=== PATIENT | male | born 1960 | race Caucasian/White ===

== ENCOUNTER 2023-11-26 09:53 | Outpatient (OUT) | payer MEDICAID, SELFPAY ==
[2023-11-26 10:30] LABS: Basophils Absolute Auto 0.1 10^3/uL (0.0-0.1); Basophils Percent Auto 0.8 % (0.2-2.0); Eosinophils Absolute Auto 0.2 10^3/uL (0.0-0.7); Hemoglobin 14.3 g/dL (14.0-18.0); Immature Granulocytes Abs Auto 0.02 10^3/uL (0.00-0.03); Immature Granulocytes Pct Auto 0.3 % (0.0-0.5); Lymphocytes Absolute Auto 2.2 10^3/uL (1.2-3.8); Lymphocytes Percent Auto 29.1 % (20.5-60.0); Mean Corpuscular Hemoglobin 33.2 pg (25.9-34.0); Mean Corpuscular Volume 97.4 fL (80.0-94.0); Mean Platelet Volume 8.5 fL (9.5-13.5); Monocytes Absolute Auto 0.8 10^3/uL (0.3-0.8); Monocytes Percent Auto 11.1 % (1.7-12.0); Neutrophils Absolute Auto 4.2 10^3/uL (1.4-6.5); Neutrophils Percent Auto 55.7 % (43.0-75.0); Platelet Count 264 10^3/uL (150-450); Red Blood Count 4.31 10^6/uL (4.70-6.10); Red Cell Distribution Width 13.9 % (11.0-15.0); White Blood Count 7.6 10^3/uL (4.0-11.0)
[2023-11-26 10:45] LABS: Alanine Aminotransferase 49 U/L (16-63); Albumin Globulin Ratio 0.8; Albumin Level 3.6 g/dL (3.4-5.0); Alkaline Phosphatase 132 U/L (46-116); Anion Gap 11.5; Aspartate Amino Transferase 49 U/L (15-37); BUN Creatinine Ratio 3.1; Bilirubin Total 0.5 mg/dL (0.2-1.0); Calcium 9.1 mg/dL (8.5-10.1); Carbon Dioxide 31.6 mmol/L (21.0-32.0); Chloride 96 mmol/L (98-107); Chol HDL Ratio 2.3; Cholesterol 171 mg/dL (<=200); Estimated GFR (African America >60 (>=60); Estimated GFR (Non-African Ame >60 (>=60); Globulin 4.4 g/dL; Glucose 93 mg/dL (74-106); HDL Cholesterol 73 mg/dL (40-60); Potassium 4.1 mmol/L (3.5-5.1); Sodium 135 mmol/L (136-145); Triglycerides 53 mg/dL (<=150); VLDL CHOLESTEROL 10.6 mg/dL
[2023-11-26 11:34] LABS: Prostate Specific Antigen Scrn 0.81 ng/mL (<=4.00)
== END 2023-11-26 09:54 | disposition home or self-care (01) ==
PROVIDERS: PCP Internal Medicine; Visit Provider Internal Medicine
DX: I48.91 Unspecified atrial fibrillation (principal); I10 Essential (primary) hypertension; E78.00 Pure hypercholesterolemia, unspecified; Z12.5 Encounter for screening for malignant neoplasm of prostate
CPT/HCPCS: 36415; 80053; 80061; 85025; G0103

== ENCOUNTER 2024-03-06 10:45 | Outpatient (OUT) | payer MEDICARE, MEDICAID, SELFPAY ==
--- NOTE | 2024-03-06 11:13 | XR_ITS ---
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 COMPARISON: None. FINDINGS: The lungs are hyperinflated with flattening of the left hemidiaphragm. There is no focal lung consolidation, pleural effusion or pneumothorax. Pulmonary vasculature is within normal limits.. There is aortic atherosclerosis and normal heart size. Small hiatal hernia. Degenerative changes of the spine. Fixation instrumentation in the cervical spine partially seen. XR/XR chest 2V IMPRESSION: 1. Pulmonary hyperinflation without acute pulmonary process. 2. Small hiatal hernia. Electronically authenticated by: KIKI MCKENNA Date: 03/08/2024 08:16
[2024-03-06 11:56] LABS: Alanine Aminotransferase 30 U/L (16-63); Albumin Level 3.6 g/dL (3.4-5.0); Alkaline Phosphatase 106 U/L (46-116); Aspartate Amino Transferase 37 U/L (15-37); Bilirubin Direct 0.2 mg/dL (0.0-0.2); Bilirubin Total 0.6 mg/dL (0.2-1.0); Globulin 3.5 g/dL; Thyroid Stimulating Hormone 0.976 uIU/mL (0.358-3.740); Total Protein 7.1 g/dL (6.4-8.2)
== END 2024-03-06 10:46 | disposition home or self-care (01) ==
LOC: LAB 10:48
PROVIDERS: PCP Internal Medicine; Visit Provider Internal Medicine Cardiovascular Disease
DX: Z79.899 Other long term (current) drug therapy (principal); K44.9 Diaphragmatic hernia without obstruction or gangrene
CPT/HCPCS: 36415; 71046; 80076; 84443

== ENCOUNTER 2024-04-12 09:51 | Outpatient (OUT) | payer MEDICARE, MEDICAID, SELFPAY ==
--- NOTE | 2024-04-12 09:57 | CA_ITS ---
Patient Name: STACI REGALADO MR#: [id number] : 1960 Exam Date: 04/12/2024 Ordering Doctor: ROBBIN WATKINS ECHOCARDIOGRAM REPORT PROCEDURE: CA ECHO DOPPLER COMPLETE INDICATIONS: Abnormal EKG COMPARISON: None. DESCRIPTION: COMPLETE ECHOCARDIOGRAM Real-time transthoracic echocardiography with 2D, M-mode, spectral and color flow Doppler performed. QUALITY: Technical quality was good. LEFT VENTRICLE: Normal chamber size. Normal left ventricular wall thickness. Global left ventricular systolic function is normal. LV EF: Visual estimation of left ventricular ejection fraction is 65%. DIASTOLIC: Not adequately assessed due to heart rhythm. ATRIAL SEPTUM: LEFT ATRIUM: Mild dilatation. RIGHT ATRIUM: Moderate dilatation. RIGHT VENTRICLE: Mild dilatation. Normal right ventricular systolic function. TRICUSPID VALVE: Normal mobility and thickness. No stenosis with mild to moderate regurgitation. No evidence of pulmonary hypertension. RVSP 33 mmHg MITRAL VALVE: Normal mobility and thickness. No evidence of mitral valve stenosis. There is no mitral annular calcification. Mild mitral regurgitation. AORTIC VALVE: Normal trileaflet appearance. Thickened aortic valve. Normal leaflet mobility. No evidence of aortic valve stenosis. No aortic regurgitation. AORTIC ROOT: Normal diameter and appearance. PULMONIC VALVE: Grossly normal. No stenosis. No regurgitation. PERICARDIUM: No evidence of pericardial effusion. IVC: Collapses with inspirations. Normal size. PLEURA: CONCLUSION: 1. Normal left ventricular size and systolic function. Estimated LVEF is 65%. 2. Mildly dilated right ventricle with normal systolic function. 3. Mild left atrial and moderate right atrial dilatation. 4. Mild mitral regurgitation. 5. Mild to moderate tricuspid regurgitation. 6. Normal right-sided pressures. 7. No pericardial effusion. Adult Echocardiography Procedure Report Left Ventricle LVEDD (3.7 - 5.6 cm): 4.38 cm LVESD (2.2 - 4.0 cm): 3.28 cm LVIVS thickness (0.6 - 1.2 cm): 0.95 cm LVPW thickness (0.5 - 1.0 cm): 0.89 cm e': 0.14 m/s E - e': 5.01 LVOT Max Gradient: 2.15 mm[Hg], 2.43 mm[Hg] LVOT Area (cm2): 0.76 m/s Peak Velocity (LVOT): 0.73 m/s, 0.78 m/s Mean Velocity (LVOT): 0.53 m/s LVOT Diameter 2.13 cm Left Ventricular Ejection Fraction: 65 % Left Atrium LA Volume Index (2D A2C): 38.93 ml/m2 Left Atrium Systolic Dimension: 4.11 cm Mitral Valve MV E to A Ratio: 8.65 Mitral Valve A-Wave Peak Velocity: 0.08 m/s Mitral Valve E-Wave Peak Velocity: 0.71 m/s Right Ventricle RV Internal Diastolic Dimension: 4.26 cm Aorta AO Root Diam: 3.44 cm Ascending Ao Diam: 3.28 cm Aortic Valve AoV Area ([place]): 2.72 cm2, 2.70 cm2, 2.74 cm2 AoV Area (VTI): 2.54 cm2, 2.54 cm2, 2.54 cm2 Peak Velocity(Antegrade Flow): 0.97 m/s, 1.01 m/s Peak Gradient(Antegrade Flow): 3.75 mm[Hg], 4.11 mm[Hg] Mean Velocity(Antegrade Flow): 0.73 m/s, 0.77 m/s Mean Gradient(Antegrade Flow): 2.42 mm[Hg], 2.67 mm[Hg] Velocity Time Integral: 18.72 cm, 20.08 cm Tricuspid Valve Peak Velocity (Regurgitant Flow): 2.54 m/s, 2.64 m/s, 2.75 m/s Pulmonic Valve Mean Gradient: 0.97 mm[Hg], 1.34 mm[Hg] Mean Velocity: 0.46 m/s, 0.55 m/s Peak Velocity: 0.70 m/s Peak Gradient: 1.76 mm[Hg], 2.16 mm[Hg] Right Atrium Right Atrium Systolic Pressure: 102.75 ml, 102.75 ml Dictated by: Philipp Marrero M.D. on 04/12/2024 at 13:27 Approved by: Philipp Marrero M.D. on 04/12/2024 at 13:31
--- OUTSIDE RECORDS SUMMARY | 2024-04-12 09:59 | XMS_ITS | CCD ---
Author Organization [facility] Inform ion Partnership [facility] Care Team Providers Care Transitions Manager Rn Name Role Phone Joesph Toribio Unavailable JOESPH, DR CORBETT Consulting Unavailable JOESPH, DR CORBETT Primary Care Unavailable JOESPH, DR CORBETT Admitting Unavailable BALL, DR CORBETT Attending Unavailable BALL, DR CORBETT Attending Unavailable BALL, DR CORBETT Consulting Unavailable BALL, DR CORBETT Primary Care Unavailable BALL, DR CORBETT Admitting Unavailable BALL, DR CORBETT Primary Care Unavailable ROBBIN WATKINS Attending Unavailable ROBBIN WATKINS Consulting Unavailable ROBBIN WATKINS Admitting Unavailable JOESPH, DR CORBETT Primary Care Unavailable TYLER ., DR MILENA Grimes Attending Unavailable DRAPER ., DR MILENA Grimes Consulting Unavailable TYLER ., DR MILENA Grimes Admitting Unavailable REINECK, DR JAZMYNE Araya Consulting Unavailmanas e ROBBIN WATKINS Consulting Unavailable NEFCY, MALIK Consulting Unavailable TERRELL, PERRY Consulting Unavailable ROBBIN WATKINS Attending Unavailable Allergies Allergy Classification Reported Allergen(s) Allergy Type Date of Onset Reaction(s) Facility (9 sources) gabapentin; Translations: [GABAPENTIN] Drug Allergy 12-31-2015 [facility] Repository (1 source) gabapentin Drug Allergy 07-04-2019 [facility] Repository Medications Current Medications Medication Drug Class(es) Dates Sig (Normalized) Sig (Original) [id number] 200 actuat albuterol 0.09 mg/actuat metered dose inhaler (20 sources) beta2-Adrenergic Agonist Start: 11-19-2023 take 2.5 mg by inhalation every six hours Albuterol Sulfate Active 2.5 MG INHALATION Every 6 hours November 19, 2023 12:00am Start: 11-19-2023 take 1 puff(s) by in halation every four hours Albuterol Sulfate Active 2 PUFF INHALATION Every 4 hours November 19, 2023 12:00am Start: 08-31-2022 Albuterol Sulf ate (2.5 MG/3ML) 0.083% 3ml Inhalation every 6 hrs as needed for cough and SOB Aug, Active take 1 puff(s) by in halation every four hours as needed Ventolin HFA 108 (90 Base) MCG/ACT 1 puff as needed Inhalation every 4 hrs Active Albuterol Sulfat e HFA 108 (90 Base) MCG/ACT 2 (TWO) PUFF EVERY 4 HOURS NEEDED FOR COUGH, SOB for 17 Active Albuterol Sulfat e HFA 108 (90 Base) MCG/ACT INHALE 2 PUFFS BY MOUTH THREE TIMES DAILY NEEDED Inhalation every 4 hrs Active 120 actuat albuterol 0.1 mg/actuat / ipratropium bromide 0.02 mg/actuat inhalation spray (9 sources) Anticholinergic, beta2-Adrenergic Agonist Start: 11-19-2023 take 20-100 ug by inhalation every six hours Ipratropium-Albuterol (Combivent Respimat) 20-100 mcg/actuation mist Active 1 PUFF INHALATION Every 6 hours November 19, 2023 12:00am take 20-100 ug by in halation four times daily Combivent Respimat 20-100 MCG/ACT INHALE 1 PUFF FOUR TIMES A DAY DIRECTED for 30 Active take 20-100 ug by in halation every six hours as needed Combivent Respimat 20-100 MCG/ACT 1 puff as needed Inhalation every 6 hrs Active amLODIPine 2.5 mg oral tablet (11 sources) Dihydropyridine Calcium Channel Stuart Start: 09-10-2023 End: 11-15-2023 take 1 tablet by mouth once daily Amlodipine Active 0 .ROUTE .COMPLEX November 15, 2023 12:41pm TAKE ONE TABLET BY MOUTH DAILY Start: 09-10-2023 End: 09-10-2023 take 2.5 mg by mouth once daily Amlodipine Discontinue d 2.5 MG PO Daily September 10, 2023 12:00am September 10, 2023 8:41am take 1 tablet by tico th once daily amLODIPine Besylate 2.5 mg TAKE 1 TABLET BY MOUTH DAILY for 28 Active amoxicillin 875 mg / clavulanate 125 mg oral tablet (7 sources) Penicillin-class Antibacterial Start: 09-04-2022 take 1 tablet by mouth every twelve hours Amoxicillin-Pot Clavulanate 875-125 MG 1 tablet Orally every 12 hrs for 7 days Aug, Active cyclobenzaprine hydrochloride 10 mg oral tablet (17 sources) Muscle Relaxant Start: 11-19-2023 take 10 mg by mouth twice daily Cyclobenzaprine Active 10 MG PO Twice daily November 19, 2023 12:00am Cyclobenzaprine HCl 10 mg TAKE 1 TABLET BY MOUTH TWICE A DAY FOR 30 DAYS for 30 Active take 1 tablet by tico th every twenty-four hours doxycycline hyclate 100 mg oral capsule (8 sources) Tetracycline-class Drug Start: 08-31-2022 take 1 capsule by mouth twice daily 12 hr guaiFENesin 600 mg extended release oral tablet (7 sources) take 1 tablet by mouth every twelve hours Mucinex 600 MG 1 tablet as needed Orally every 12 hrs Active lisinopril 20 mg oral tablet (9 sources) Angiotensin Converting Enzyme Inhibitor Start: 11-19-2023 take 20 mg by mouth once daily Lisinopril Active 20 MG PO Daily November 19, 2023 12:00am take 1 tablet by mouth once donavan y Lisinopril 20 mg TAKE ONE TABLET BY MOUTH DAILY for 28 Active 24 hr metoprolol succinate 100 mg extended release oral capsule (9 sources) beta-Adrenergic Stuart Start: 11-19-2023 take 100 mg by mouth once daily Metoprolol Succinate Active 100 MG PO Daily November 19, 2023 12:00am take 1 capsule by mouth once mey ly Metoprolol Succinate 100 MG 1 capsule Orally Once a day Active rivaroxaban 20 mg oral tablet (9 sources) Factor Xa Inhibitor Start: 11-19-2023 take 20 mg by mouth once daily Rivaroxaban Active 20 MG PO Daily November 19, 2023 12:00am take 1 tablet by tico th every twenty-four hours Xarelto 20 MG 1 tablet with food Orally Once a day Active Therapeutic M (8 sources) Therapeutic M Ac tive Therapeutic-M/Lutein - (3 sources) take 1 tablet by mouth once daily Therapeutic-M/Lutein - TAKE ONE TABLET BY MOUTH ONCE DAILY for 28 Active vitamin b12 1 mg sublingual tablet (13 sources) Vitamin B12 Start: take 1000 ug by mouth once daily Cyanocobalamin (Vitamin B-12) Active 1000 MCG PO Daily November 19, 2023 12:00am Start: 11-19-2023 take 1000 ug under t he tongue once daily Cyanocobalamin (Vitamin B-12) Active 1000 MCG SUBLINGUAL Daily November 19, 2023 12:00am Start: 02-25-2023 take 1 tablet under the tongue once daily Cyanocobalamin 1000 MCG 1 tablet under the tongue and allow to dissolve Sublingual Once a day for 30 days Jan, Active take 1 tablet by tico th once daily take 1 tablet by tico th once daily Cyanocobalamin ER 1000 MCG 1 tablet Orally Once a day Active Completed/Discontinued Medications Medication Drug Class(es) Dates Sig (Normalized) Sig (Original) amiodarone hydrochloride 200 mg oral tablet (9 sources) Antiarrhythmic Start: 11-19-2023 End: 11-26-2023 take 200 mg by mouth once daily Amiodarone Discontinued 200 MG PO Daily November 19, 2023 12:00am November 26, 2023 9:29am take 1 tablet by tico th every twenty-four hours Amiodarone HCl 200 MG 1 tablet Orally Once a day Active Problems Active Problems Problem Classification Problem Date Documented Date Episodic/Chronic Acute bronchitis (2 sources) Acute bronchitis due to other specified organisms Episodic Cardiac dysrhythmias (20 sources) Cardiac arrhythmia; Translations: [Cardiac arrhythmia, unspecified] Onset: 05-11-2022 Chronic Chronic obstructive pulmonary disease and bronchiectasis (20 sources) Mucopurulent chronic bronchitis; Translations: [Mucopurulent chronic bronchitis] Onset: 05-18-2022 Chronic Disorders of lipid metabolism (12 sources) Pure hypercholesterolemia; Translations: [Pure hypercholesterolemia, unspecified] Onset: 05-18-2022 Chronic Esophageal disorders (3 sources) Gastro-esophageal reflux disease with esophagitis; Translations: [Gastroesophageal reflux disease with esophagitis without hemorrhage] 11-26-2023 Chronic Essential hypertension (15 sources) Essential hypertension; Translations: [Essential (primary) hypertension] Onset: 05-18-2022 Chronic Hyperplasia of prostate (8 sources) Lower urinary tract symptoms due to benign prostatic hypertrophy; Translations: [Benign prostatic hyperplasia with lower urinary tract symptoms] Chronic Late effects of cerebrovascular disease (8 sources) 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; Translations: [Hemiplegia and hemiparesis following cerebral infarction affecting right dominant side] Chronic Malaise and fatigue (9 sources) Fatigue; Translations: [Other fatigue] Onset: 05-18-2022 Episodic Miscellaneous mental health disorders (8 sources) Primary insomnia; Translations: [Primary insomnia] Chronic Nutritional deficiencies (1 source) Deficiency of other specified B group vitamins Episodic Other and ill-defined cerebrovascular disease (1 source) Cerebral atherosclerosis; Translations: [Cerebral atherosclerosis] 11-26-2023 Chronic Other and ill-defined cerebrovascular disease (1 source) Cerebral atherosclerosis; Translations: [Cerebral atherosclerosis] 11-26-2023 Chronic Other circulatory disease (8 sources) History of cerebrovascular accident without residual deficits; Translations: [Personal history of transient ischemic attack (TIA), and cerebral infarction without residual deficits] Episodic Other circulatory disease (1 source) Personal history of transient ischemic attack (TIA), and cerebral infarction without residual deficits Episodic Other inflammatory condition of skin (8 sources) Psoriasis; Translations: [Psoriasis, unspecified] Chronic Other screening for suspected conditions (not mental disorders or infectious disease) (3 sources) Encounter for screening for malignant neoplasm of prostate; Translations: [Other specified abnormal findings of blood chemistry] Onset: 05-18-2022 11-26-2023 Episodic Other skin disorders (8 sources) Other seborrheic keratosis; Translations: [Seborrheic keratosis] Episodic Rheumatoid arthritis and related disease (13 sources) Inflammatory polyarthropathy; Translations: [Inflammatory polyarthropathy] Onset: 05-11-2022 Chronic Spondylosis; intervertebral disc disorders; other back problems (17 sources) Cervical spondylosis; Translations: [Spondylosis without myelopathy or radiculopathy, cervical region] Chronic Substance-related disorders (12 sources) Tobacco user; Translations: [Nicotine dependence, cigarettes, uncomplicated] Onset: 05-18-2022 Chronic Unclassified (4 sources) CONTACT W/AND (SUSP) EXPOS COVID-19; Translations: [CONTACT W/AND (SUSP) EXPOS COVID-19] Onset: 05-18-2022 Unclassified (1 source) ALCOHOL USE UNSPEC UNCOMPLICATED; Translations: [ALCOHOL USE UNSPEC UNCOMPLICATED] Onset: 05-18-2022 Past or Other Problems Problem Classification Problem Date Documented Da te Episodic/Chronic Acquired foot deformities (1 source) Foot drop, right foot; Translations: [FOOT DROP RIGHT FOOT] Onset: 05-18-2022 Episodic Deficiency and other anemia (1 source) Nutritional anemia, unspecified; Translations: [NUTRITIONAL ANEMIA UNSPECIFIED] Onset: 05-18-2022 Episodic Esophageal disorders (7 sources) Esophageal disorders; Translations: [Gastroesophageal reflux disease with esophagitis without hemorrhage] Other aftercare (1 source) Other jail (current) drug therapy; Translations: [OTH PENITENTIARY CURRENT DRUG THERAPY] Onset: 05-18-2022 Episodic Unclassified (3 sources) Permanent atrial fibrillation Unclassified (1 source) CONTACT W/AND (SUSP) EXPOS COVID-19; Translations: [CONTACT W/AND (SUSP) EXPOS COVID-19] Onset: 08-31-2022 Results Test Name Value Interpretation Reference Range Facility Office Visiton 04-04-2024 Follow-up visit [id number] Staci Vang 1960 M Date Provider Department Center 04/04/2024 [facility] No family history on file Level of Service:37800 ME OFFICE/OUTPATIENT ESTABLISHED LOW MDM 20 MIN Normal [facility] Orders Onlyon 02-25-2024 Orders Only [id number] Staci Vang 1960 M Date Provider Department Center 02/25/2024 MARIBEL HUANG [facility] No family history on file Normal [facility] Covid-19 PCR (CVDTB)on SARS-CoV-2 (COVID-19) RNA WHIT+probe Ql (Unsp spec) Not detected Normal NOT DETECTED [facility] Comment on above: Result Comment: When diagnostic testing is negative, the possibility of a false negative should be considered in the context of a patient's recent exposures and the presence of clinical signs and symptoms consistent with SARS-CoV-2. This test is not yet approved or cleared by the [place] FDA. When there are no FDA-approved or cleared tests available, and other criteria are met, FDA can make tests available under an emergency access mechanism called an Emergency Use Authorization (EUA). The EUA for this test is supported by the [place] of Health and Human Service's declaration that circumstances exist to justify the emergency use of in vitro diagnostics for the detection and/or diagnosis of the virus that causes COVID-19. This EUA will remain in effect for the duration of the COVID-19 declaration justifying emergency of IVDs, unless it is terminated or revoked by the FDA (after which the test may no longer be used). Performed By: #### C VDTB #### [facility] [address] [place] [address] Dr. Kaylan Lew PROF CHEM 8 (BAS METB)on Anion gap [Moles/Vol] 13.3 mmol/L Normal [facility] Comment on above: Performed By: #### B MP #### [facility] [address] [address] [address] Kaylan Lew Calcium [Mass/Vol] 9.1 mg/dL Normal 8.5-10.1 [facility] Comment on above: Performed By: #### B MP #### [facility] [address] [place] [address] Dr. Kaylan Lew Chloride [Moles/Vol] 96 mmol/L Critically low 98-107 [facility] Comment on above: Performed By: #### B MP #### [facility] [address] [place] [address] Dr. Kaylan Lew CO2 [Moles/Vol] 31.2 mmol/L Normal 21.0-32.0 [facility] Comment on above: Performed By: #### B MP #### [facility] [address] [place] [address] Dr. Kaylan Lew Creatinine [Mass/Vol] 0.72 mg/dL Normal 0.70-1.30 [facility] Comment on above: Performed By: #### B MP #### [facility] [address] [place] [address] Dr. Kaylan Lew EGFR-AF EGYPTIAN >60 Normal >=60 [facility] Comment on above: Performed By: #### B MP #### [facility] [address] [place] [address] Dr. Kaylan Lew EGFR-NON AF EGYPTIAN >60 Normal >=60 [facility] Comment on above: Performed By: #### B MP #### [facility] [address] [place] [address] Dr. Kaylan Lew Glucose [Mass/Vol] 110 mg/dL Critically high 74-106 [facility] Comment on above: Performed By: #### B MP #### [facility] [address] [place] [address] Dr. Kaylan Lew Potassium [Moles/Vol] 4.5 mmol/L Normal 3.5-5.1 [facility] Comment on above: Performed By: #### B MP #### [facility] [address] [place] [address] Dr. Kaylan Lew Sodium [Moles/Vol] 136 mmol/L Normal 136-145 [facility] Comment on above: Performed By: #### B MP #### [facility] [address] [place] [address] Dr. Kaylan Lew Urea nitrogen [Mass/Vol] 3.0 mg/dL Critically low 7.0-18.0 [facility] Comment on above: Performed By: #### B MP #### [facility] [address] [place] [address] Dr. Kaylan Lew Urea nitrogen/Creatinine [Mass ratio] 4.2 mg/mg Normal [facility] Comment on above: Performed By: #### B MP #### [facility] [address] [place] [address] Dr. Kaylan Lew CBC AUTO DIFFon 05-13-2022 BASO # 0.1 103/ul Normal 0.0-0.1 [facility] Comment on above: Performed By: #### C BC #### [facility] [address] [place] [address] Dr. Kaylan Lew Basophils/100 WBC (Bld) 0.6 % Normal 0.2-2.0 [facility] Comment on above: Performed By: #### C BC #### [facility] [address] [place] [address] Dr. Kaylan Lew EO # 0.2 103/ul Normal 0.0-0.7 [facility] Comment on above: Performed By: #### C BC #### [facility] [address] [place] [address] Dr. Kaylan Lew Eosinophils/100 WBC (Bld) 2.0 % Normal 0.9-7.0 [facility] Comment on above: Performed By: #### C BC #### [facility] [address] [place] [address] Dr. Kaylan Lew Erythrocyte distribution width (RBC) [Ratio] 13.8 % Normal 11.0-15.0 [facility] Comment on above: Performed By: #### C BC #### [facility] [address] [place] [address] Dr. Kaylan Lew Hematocrit (Bld) [Volume fraction] 39.8 % Critically low 42.0-54.0 [facility] Comment on above: Performed By: #### C BC #### [facility] [address] [place] [address] Dr. Kaylan Lew Hemoglobin (Bld) [Mass/Vol] 13.9 g/dL Critically low 14.0-18.0 [facility] Comment on above: Performed By: #### C BC #### [facility] [address] [place] [address] Dr. Kaylan Lew IG # 0.02 10e3/ul Normal 0.00-0.03 [facility] Comment on above: Performed By: #### C BC #### [facility] [address] [place] [address] Dr. Kaylan Lew IG % 0.2 % Normal 0.0-0.5 [facility] Comment on above: Performed By: #### C BC #### [facility] [address] [place] [address] Dr. Kaylan Lew LYMPH # 2.1 103/ul Normal 1.2-3.8 [facility] Comment on above: Performed By: #### C BC #### [facility] [address] [place] [address] Dr. Kaylan Lew Lymphocytes/100 WBC (Bld) 23.8 % Normal 20.5-60.0 [facility] Comment on above: Performed By: #### C BC #### [facility] [address] [place] [address] Dr. Kaylan Lew MANUAL DIFF REQ NO Normal [facility] Comment on above: Performed By: #### C BC #### [facility] [address] [place] [address] Dr. Kaylan Lew MCH (RBC) [Entitic mass] 33.4 pg Normal 25.9-34.0 [facility] Comment on above: Performed By: #### C BC #### [facility] [address] [place] [address] Dr. Kaylan Lew MCHC (RBC) [Mass/Vol] 34.9 g/dL Normal 29.9-35.2 [facility] Comment on above: Performed By: #### C BC #### [facility] [address] [place] [address] Dr. Kaylan Lew MCV (RBC) [Entitic vol] 95.7 fL Critically high 80.0-94.0 [facility] Comment on above: Performed By: #### C BC #### [facility] [address] [place] [address] Dr. Kaylan Lew MONO # 0.9 103/ul Critically high 0.3-0.8 [facility] Comment on above: Performed By: #### C BC #### [facility] [address] [place] [address] Dr. Kaylan Lew Monocytes/100 WBC (Bld) 10.4 % Normal 1.7-12.0 [facility] Comment on above: Performed By: #### C BC #### [facility] [address] [place] [address] Dr. Kaylan Lew NEUT # 5.6 103/ul Normal 1.4-6.5 [facility] Comment on above: Performed By: #### C BC #### [facility] [address] [place] [address] Dr. Kaylan Lew Neutrophils/100 WBC (Bld) 63.0 % Normal 43.0-75.0 [facility] Comment on above: Performed By: #### C BC #### [facility] [address] [place] [address] Dr. Kaylan Lew Platelet mean volume (Bld) [Entitic vol] 8.6 fL Critically low 9.5-13.5 [facility] Comment on above: Performed By: #### C BC #### [facility] [address] [place] [address] Dr. Kaylan Lew PLT 182 103/ul Normal 150-450 [facility] Comment on above: Performed By: #### C BC #### [facility] [address] [place] [address] Dr. Kaylan Lew RBC 4.16 106/ul Critically low 4.70-6.10 [facility] Comment on above: Performed By: #### C BC #### [facility] [address] [place] [address] Dr. Kaylan Lew WBC 8.8 103/ul Normal 4.0-11.0 [facility] Comment on above: Performed By: #### C BC #### [facility] [address] [place] [address] Dr. Kaylan Lew PROF 14(COMP METB)on 022 Albumin [Mass/Vol] 3.2 g/dL Critically low 3.4-5.0 [facility] Comment on above: Performed By: #### C MP #### [facility] [address] [place] [address] Dr. Kaylan Lew Albumin/Globulin [Mass ratio] 0.9 {ratio} Normal [facility] Comment on above: Performed By: #### C MP #### [facility] [address] [place] [address] Dr. Kaylan Lew ALP [Catalytic activity/Vol] 92 U/L Normal 46-116 [facility] Comment on above: Performed By: #### C MP #### [facility] [address] [place] [address] Dr. Kaylan Lew ALT [Catalytic activity/Vol] 63 U/L Normal 16-63 [facility] Comment on above: Performed By: #### C MP #### [facility] [address] [place] [address] Dr. Kaylan Lew Anion gap [Moles/Vol] 7.5 mmol/L Normal [facility] Comment on above: Performed By: #### C MP #### [facility] [address] [address] [address] Kaylan Lew AST [Catalytic activity/Vol] 39 U/L Critically high 15-37 [facility] Comment on above: Performed By: #### C MP #### [facility] [address] [address] [address] Kaylan Lew Bilirubin [Mass/Vol] 0.7 mg/dL Normal 0.2-1.0 [facility] Comment on above: Performed By: #### C MP #### [facility] [address] [address] [address] Kaylan Lew Calcium [Mass/Vol] 8.7 mg/dL Normal 8.5-10.1 [facility] Comment on above: Performed By: #### C MP #### [facility] [address] [address] [address] Kaylan Lew Chloride [Moles/Vol] 97 mmol/L Critically low 98-107 [facility] Comment on above: Performed By: #### C MP #### [facility] [address] [address] [address] Kaylan Lew CO2 [Moles/Vol] 30.4 mmol/L Normal 21.0-32.0 [facility] Comment on above: Performed By: #### C MP #### [facility] [address] [address] [address] Kaylan Lew Creatinine [Mass/Vol] 0.67 mg/dL Critically low 0.70-1.30 [facility] Comment on above: Performed By: #### C MP #### [facility] [address] [address] [address] Kaylan Lew EGFR-AF EGYPTIAN >60 Normal >=60 [facility] Comment on above: Performed By: #### C MP #### [facility] [address] [address] [address] Kaylan Lew EGFR-NON AF EGYPTIAN >60 Normal >=60 [facility] Comment on above: Performed By: #### C MP #### [facility] [address] [address] [address] Kaylan Lew Globulin (S) [Mass/Vol] 3.5 g/dL Normal [facility] Comment on above: Performed By: #### C MP #### [facility] [address] [address] [address] Kaylan Lew Glucose [Mass/Vol] 103 mg/dL Normal 74-106 [facility] Comment on above: Performed By: #### C MP #### [facility] [address] [address] [address] Kaylan Lew Potassium [Moles/Vol] 3.9 mmol/L Normal 3.5-5.1 [facility] Comment on above: Performed By: #### C MP #### [facility] [address] [address] [address] Kaylan Lew Protein [Mass/Vol] 6.7 g/dL Normal 6.4-8.2 [facility] Comment on above: Performed By: #### C MP #### [facility] [address] [address] [address] Kaylan Lew Sodium [Moles/Vol] 131 mmol/L Critically low 136-145 [facility] Comment on above: Performed By: #### C MP #### [facility] [address] [place] [address] Dr. Kaylan Lew Urea nitrogen [Mass/Vol] 5.0 mg/dL Critically low 7.0-18.0 [facility] Comment on above: Performed By: #### C MP #### [facility] [address] [address] [address] Kaylan Lew Urea nitrogen/Creatinine [Mass ratio] 7.5 mg/mg Normal [facility] Comment on above: Performed By: #### C MP #### [facility] [address] [place] [address] Dr. Kaylan Lew CBC AUTO DIFFon 05-12-2022 BASO # 0.0 103/ul Normal 0.0-0.1 [facility] Comment on above: Performed By: #### C BC #### [facility] [address] [place] [address] Dr. Kaylan Lew Basophils/100 WBC (Bld) 0.5 % Normal 0.2-2.0 [facility] Comment on above: Performed By: #### C BC #### [facility] [address] [place] [address] Dr. Kaylan Lew EO # 0.2 103/ul Normal 0.0-0.7 [facility] Comment on above: Performed By: #### C BC #### [facility] [address] [place] [address] Dr. Kaylan Lew Eosinophils/100 WBC (Bld) 2.9 % Normal 0.9-7.0 [facility] Comment on above: Performed By: #### C BC #### [facility] [address] [place] [address] Dr. Kaylan Lew Erythrocyte distribution width (RBC) [Ratio] 13.9 % Normal 11.0-15.0 [facility] Comment on above: Performed By: #### C BC #### [facility] [address] [place] [address] Dr. Kaylan Lew Hematocrit (Bld) [Volume fraction] 38.7 % Critically low 42.0-54.0 [facility] Comment on above: Performed By: #### C BC #### [facility] [address] [place] [address] Dr. Kaylan Lew Hemoglobin (Bld) [Mass/Vol] 13.7 g/dL Critically low 14.0-18.0 [facility] Comment on above: Performed By: #### C BC #### [facility] [address] [place] [address] Dr. Kaylan Lew IG # 0.02 10e3/ul Normal 0.00-0.03 [facility] Comment on above: Performed By: #### C BC #### [facility] [address] [place] [address] Dr. Kaylan Lew IG % 0.3 % Normal 0.0-0.5 [facility] Comment on above: Performed By: #### C BC #### [facility] [address] [address] [address] Kaylan Lew LYMPH # 2.1 103/ul Normal 1.2-3.8 [facility] Comment on above: Performed By: #### C BC #### [facility] [address] [address] [address] Kaylan Lew Lymphocytes/100 WBC (Bld) 33.7 % Normal 20.5-60.0 [facility] Comment on above: Performed By: #### C BC #### [facility] [address] [address] [address] Kaylan Lew MANUAL DIFF REQ NO Normal [facility] Comment on above: Performed By: #### C BC #### [facility] [address] [place] [address] Dr. Kaylan Lew MCH (RBC) [Entitic mass] 33.8 pg Normal 25.9-34.0 [facility] Comment on above: Performed By: #### C BC #### [facility] [address] [place] [address] Dr. Kaylan Lew MCHC (RBC) [Mass/Vol] 35.4 g/dL Critically high 29.9-35.2 [facility] Comment on above: Performed By: #### C BC #### [facility] [address] [place] [address] Dr. Kaylan Lew MCV (RBC) [Entitic vol] 95.6 fL Critically high 80.0-94.0 [facility] Comment on above: Performed By: #### C BC #### [facility] [address] [place] [address] Dr. Kaylan Lew MONO # 0.7 103/ul Normal 0.3-0.8 [facility] Comment on above: Performed By: #### C BC #### [facility] [address] [place] [address] Dr. Kaylan Lew Monocytes/100 WBC (Bld) 11.9 % Normal 1.7-12.0 [facility] Comment on above: Performed By: #### C BC #### [facility] [address] [address] [address] Kaylan Lew NEUT # 3.1 103/ul Normal 1.4-6.5 [facility] Comment on above: Performed By: #### C BC #### [facility] [address] [address] [address] Kaylan Lew Neutrophils/100 WBC (Bld) 50.7 % Normal 43.0-75.0 [facility] Comment on above: Performed By: #### C BC #### [facility] [address] [address] [address] Kaylan Lew Platelet mean volume (Bld) [Entitic vol] 8.7 fL Critically low 9.5-13.5 [facility] Comment on above: Performed By: #### C BC #### [facility] [address] [address] [address] Kaylan Lew PLT 230 103/ul Normal 150-450 [facility] Comment on above: Performed By: #### C BC #### [facility] [address] [address] [address] Kaylan Lew RBC 4.05 106/ul Critically low 4.70-6.10 [facility] Comment on above: Performed By: #### C BC #### [facility] [address] [address] [address] Kaylan Lew WBC 6.1 103/ul Normal 4.0-11.0 [facility] Comment on above: Performed By: #### C BC #### [facility] [id number] Kaylan Lew ECHOCARDIO M/2D COMPLETEon 1 07-12-2021 ECHOCARDIO M/2D COMPLETE Patient: STACI VANG Exam Date: 05/12/2022 : 1960 Gender:M Ordering : DR MILENA DRAPER . Admission #: [id number] Family : DR TORIBIO PINK D.O. Order #: [id number] CLICK HERE TO VIEW EXAM ECHOCARDIOGRAM REPORT PROCEDURE: CARDIO PULMONARY ECHOCARDIO M/2D COMP INDICATIONS: New onset of Afib w/RVR COMPARISON: None. DESCRIPTION: COMPLETE ECHOCARDIOGRAM Real-time transthoracic echocardiography with 2D, M-mode, spectral and color flow Doppler performed. QUALITY: Technical quality was good. LEFT VENTRICLE: Normal chamber size. Borderline left ventricular hypertrophy. Global left ventricular systolic function is mildly decreased. LV EF: Calculated left ventricular ejection fraction is 42% DIASTOLIC: Not adequately assessed due to heart rhythm. ATRIAL SEPTUM: LEFT ATRIUM: Normal chamber size. RIGHT ATRIUM: Mild dilatation. RIGHT VENTRICLE: Mild dilatation. Mildly reduced right ventricular systolic function. TRICUSPID VALVE: Normal mobility and thickness. No stenosis with mild regurgitation. Mild pulmonary hypertension. RVSP 42 mmHg MITRAL VALVE: Normal mobility and thickness. No mitral valve prolapse. No evidence of mitral valve stenosis. There is no mitral annular calcification. Mild mitral regurgitation. AORTIC VALVE: Normal trileaflet appearance. No visible sclerosis. Normal leaflet mobility. No evidence of aortic valve stenosis. No aortic regurgitation. AORTIC ROOT: Normal diameter and appearance. PULMONIC VALVE: Normal thickness and mobility. No stenosis. No regurgitation. PERICARDIUM: No evidence of pericardial effusion. IVC: Collapses with inspirations. Normal size. PLEURA: CONCLUSION: 1. Left ventricular systolic function is mildly reduced. LVEF is 40 to 45%. 2. Mildly dilated right ventricle with mildly reduced systolic function. 3. Mild mitral and tricuspid regurgitation. 4. Mildly elevated right-sided pressures. 5. No pericardial effusion. Adult Echocardiography Procedure Report Left Ventricle LVEDD (3.7 - 5.6 cm): 4.75 cm, 4.64 cm LVESD (2.2 - 4.0 cm): 3.69 cm, 3.47 cm LVIVS thickness (0.6 - 1.2 cm): 1.07 cm LVPW thickness (0.5 - 1.0 cm): 0.89 cm, 0.92 cm e': 0.12 m/s LVOT Max Gradient: 1.28 mm[Hg] Peak Velocity (LVOT): 0.57 m/s LVOT Diameter 2.10 cm Left Ventricular Ejection Fraction: 40-45 % Left Atrium LA Volume Index (2D A2C): 72.43 ml, 73.02 ml Left Atrium Systolic Dimension: 3.71 cm, 3.80 cm Mitral Valve Right Ventricle RV Internal Diastolic Dimension: 3.90 cm Aorta AO Root Diam: 3.10 cm, 3.15 cm Ascending Ao Diam: 2.55 cm Aortic Valve AoV Area ([place]): 2.39 cm2, 2.52 cm2 Peak Velocity(Antegrade Flow): 0.78 m/s, 0.90 m/s, 0.78 m/s Peak Gradient(Antegrade Flow): 2.43 mm[Hg], 3.25 mm[Hg], 2.43 mm[Hg] Mean Velocity(Antegrade Flow): 0.58 m/s, 0.64 m/s, 0.59 m/s Mean Gradient(Antegrade Flow): 1.50 mm[Hg], 1.83 mm[Hg], 1.54 mm[Hg] Velocity Time Integral: 14.42 cm, 15.42 cm, 13.64 cm Tricuspid Valve Peak Velocity (Regurgitant Flow): 3.11 m/s, 2.89 m/s Peak Velocity: 0.40 m/s Pulmonic Valve Mean Gradient: 1.86 mm[Hg] Mean Velocity: 0.65 m/s Peak Velocity: 0.90 m/s, 0.81 m/s Peak Gradient: 2.60 mm[Hg], 3.21 mm[Hg] Right Atrium Right Atrium Systolic Pressure: 90.56 ml, 90.56 ml Dictated by: Philipp Marrero M.D. on 05/13/2022 at 20:02 Approved by: Philipp Marrero M.D. on 05/13/2022 at 20:06 Normal [facility] LIPID PROFILEon 05-12-2022 CHOL-HDL RATIO NORM SEE BELOW Normal [facility] Comment on above: Result Comment: 3.3 - 4.4 LOW RISK 4.4 - 7.1 AVERAGE RISK 7.1 - 11.0 MODERATE RISK >11.0 HIGH RISK Performed By: #### C MP #### [facility] [address] [place] [address] Dr. Kaylan Lew Cholesterol [Mass/Vol] 146 mg/dL Normal <=200 [facility] Comment on above: Performed By: #### C MP #### [facility] [address] [address] [address] Kaylan Lew Cholesterol in HDL [Mass/Vol] 76 mg/dL Critically high 40-60 [facility] Comment on above: Performed By: #### C MP #### [facility] [address] [address] [address] Kaylan Lew Cholesterol in LDL [Mass/Vol] 56.6 mg/dL Normal [facility] Comment on above: Performed By: #### C MP #### [facility] [address] [address] [address] Kaylan Lew Cholesterol.total/C holesterol in HDL [Mass ratio] 1.9 {ratio} Normal [facility] Comment on above: Performed By: #### C MP #### [facility] [address] [address] [address] Kaylan Lew HDL NORMAL > or = 60 mg/dl - LO W CARDIOVASCULAR RISK <40 mg/dl - HIGH CARDIOVASCULAR RISK Normal [facility] Comment on above: Performed By: #### C MP #### [facility] [address] [address] [address] Kaylan Lew LDL CALC NORMAL SEE BELOW Normal [facility] Comment on above: Result Comment: <100 mg/dl OPTIMAL 100 - 129 mg/dl NEAR OR ABOVE OPTIMAL 130 - 159 mg/dl BORDERLINE HIGH 160 - 189 mg/dl HIGH >190 mg/dl VERY HIGH Performed By: #### C MP #### [facility] [address] [address] [address] Kaylan Lew Triglyceride [Mass/Vol] 67 mg/dL Normal <=150 [facility] Comment on above: Performed By: #### C MP #### [facility] [address] [address] [address] Kaylan Lew VLDL CALC 13.4 mg/dL Normal [facility] Comment on above: Performed By: #### C MP #### [facility] [address] [address] [address] Kaylan Lew PROF 14(COMP METB)on 022 Albumin [Mass/Vol] 3.1 g/dL Critically low 3.4-5.0 [facility] Comment on above: Performed By: #### C MP #### [facility] [address] [address] [address] Kaylan Lew Albumin/Globulin [Mass ratio] 0.9 {ratio} Normal [facility] Comment on above: Performed By: #### C MP #### [facility] [address] [address] [address] Kaylan Lew ALP [Catalytic activity/Vol] 86 U/L Normal 46-116 [facility] Comment on above: Performed By: #### C MP #### [facility] [address] [address] [address] Kaylan Lew ALT [Catalytic activity/Vol] 76 U/L Critically high 16-63 [facility] Comment on above: Performed By: #### C MP #### [facility] [address] [address] [address] Kaylan Lew Anion gap [Moles/Vol] 9.4 mmol/L Normal [facility] Comment on above: Performed By: #### C MP #### [facility] [address] [address] [address] Kaylan Lew AST [Catalytic activity/Vol] 62 U/L Critically high 15-37 [facility] Comment on above: Performed By: #### C MP #### [facility] [address] [address] [address] Kaylan Lew Bilirubin [Mass/Vol] 0.8 mg/dL Normal 0.2-1.0 [facility] Comment on above: Performed By: #### C MP #### [facility] [address] [address] [address] Kaylan Lew Calcium [Mass/Vol] 8.6 mg/dL Normal 8.5-10.1 [facility] Comment on above: Performed By: #### C MP #### [facility] [address] [address] [address] Kaylan Lew Chloride [Moles/Vol] 97 mmol/L Critically low 98-107 [facility] Comment on above: Performed By: #### C MP #### [facility] [address] [address] [address] Kaylan Lew CO2 [Moles/Vol] 29.6 mmol/L Normal 21.0-32.0 [facility] Comment on above: Performed By: #### C MP #### [facility] [address] [address] [address] Kaylan Lew Creatinine [Mass/Vol] 0.59 mg/dL Critically low 0.70-1.30 [facility] Comment on above: Performed By: #### C MP #### [facility] [address] [address] [address] Kaylan Lew EGFR-AF EGYPTIAN >60 Normal >=60 [facility] Comment on above: Performed By: #### C MP #### [facility] [address] [address] [address] Kaylan Lew EGFR-NON AF EGYPTIAN >60 Normal >=60 [facility] Comment on above: Performed By: #### C MP #### [facility] [address] [place] [address] Dr. Kaylan Lew Globulin (S) [Mass/Vol] 3.3 g/dL Normal [facility] Comment on above: Performed By: #### C MP #### [facility] [address] [place] [address] Dr. Kaylna Lew Glucose [Mass/Vol] 86 mg/dL Normal 74-106 [facility] Comment on above: Performed By: #### C MP #### [facility] [address] [place] [address] Dr. Kaylan Lew Potassium [Moles/Vol] 4.0 mmol/L Normal 3.5-5.1 [facility] Comment on above: Performed By: #### C MP #### [facility] [address] [place] [address] Dr. Kaylan Lew Protein [Mass/Vol] 6.4 g/dL Normal 6.4-8.2 [facility] Comment on above: Performed By: #### C MP #### [facility] [address] [place] [address] Dr. Kaylan Lew Sodium [Moles/Vol] 132 mmol/L Critically low 136-145 [facility] Comment on above: Performed By: #### C MP #### [facility] [address] [place] [address] Dr. Kaylan Lew Urea nitrogen [Mass/Vol] 8.0 mg/dL Normal 7.0-18.0 [facility] Comment on above: Performed By: #### C MP #### [facility] [address] [place] [address] Dr. Kaylan Lew Urea nitrogen/Creatinine [Mass ratio] 13.6 mg/mg Normal [facility] Comment on above: Performed By: #### C MP #### [facility] [address] [place] [address] Dr. Kaylan Lew TSHon 05-12-2022 TSH 1.196 uIU/mL Normal 0.358-3.740 [facility] Comment on above: Performed By: #### T SH, LIPID #### [facility] [address] [place] [address] Dr. Kaylan Lew CBC AUTO DIFFon 05-11-2022 BASO # 0.0 103/ul Normal 0.0-0.1 [facility] Comment on above: Performed By: #### C BC #### [facility] [address] [place] [address] Dr. Kaylan Lew Basophils/100 WBC (Bld) 0.4 % Normal 0.2-2.0 [facility] Comment on above: Performed By: #### C BC #### [facility] [address] [place] [address] Dr. Kaylan Lew EO # 0.1 103/ul Normal 0.0-0.7 [facility] Comment on above: Performed By: #### C BC #### [facility] [address] [place] [address] Dr. Kaylan Lew Eosinophils/100 WBC (Bld) 1.3 % Normal 0.9-7.0 [facility] Comment on above: Performed By: #### C BC #### [facility] [address] [place] [address] Dr. Kaylan Lew Erythrocyte distribution width (RBC) [Ratio] 13.7 % Normal 11.0-15.0 [facility] Comment on above: Performed By: #### C BC #### [facility] [address] [place] [address] Dr. Kaylan Lew Hematocrit (Bld) [Volume fraction] 44.1 % Normal 42.0-54.0 [facility] Comment on above: Performed By: #### C BC #### [facility] [address] [place] [address] Dr. Kaylan Lew Hemoglobin (Bld) [Mass/Vol] 15.7 g/dL Normal 14.0-18.0 [facility] Comment on above: Performed By: #### C BC #### [facility] [address] [place] [address] Dr. Kaylan Lew IG # 0.03 10e3/ul Normal 0.00-0.03 [facility] Comment on above: Performed By: #### C BC #### [facility] [address] [place] [address] Dr. Kaylan Lew IG % 0.4 % Normal 0.0-0.5 [facility] Comment on above: Performed By: #### C BC #### [facility] [address] [place] [address] Dr. Kaylan Lew LYMPH # 1.8 103/ul Normal 1.2-3.8 [facility] Comment on above: Performed By: #### C BC #### [facility] [address] [place] [address] Dr. Kaylan Lew Lymphocytes/100 WBC (Bld) 24.8 % Normal 20.5-60.0 [facility] Comment on above: Performed By: #### C BC #### [facility] [address] [place] [address] Dr. Kaylan Lew MANUAL DIFF REQ NO Normal [facility] Comment on above: Performed By: #### C BC #### [facility] [address] [place] [address] Dr. Kaylan Lew MCH (RBC) [Entitic mass] 33.3 pg Normal 25.9-34.0 [facility] Comment on above: Performed By: #### C BC #### [facility] [address] [place] [address] Dr. Kaylan Lew MCHC (RBC) [Mass/Vol] 35.6 g/dL Critically high 29.9-35.2 [facility] Comment on above: Performed By: #### C BC #### [facility] [address] [address] [address] Kaylan Lew MCV (RBC) [Entitic vol] 93.4 fL Normal 80.0-94.0 [facility] Comment on above: Performed By: #### C BC #### [facility] [address] [address] [address] Kaylan Lew MONO # 0.6 103/ul Normal 0.3-0.8 [facility] Comment on above: Performed By: #### C BC #### [facility] [address] [place] [address] Dr. Kaylan Lew Monocytes/100 WBC (Bld) 7.9 % Normal 1.7-12.0 [facility] Comment on above: Performed By: #### C BC #### [facility] [address] [place] [address] Dr. Kaylan Lew NEUT # 4.6 103/ul Normal 1.4-6.5 [facility] Comment on above: Performed By: #### C BC #### [facility] [address] [place] [address] Dr. Kaylan Lew Neutrophils/100 WBC (Bld) 65.2 % Normal 43.0-75.0 [facility] Comment on above: Performed By: #### C BC #### [facility] [address] [address] [address] Kaylan Lew Platelet mean volume (Bld) [Entitic vol] 8.6 fL Critically low 9.5-13.5 [facility] Comment on above: Performed By: #### C BC #### [facility] [address] [place] [address] Dr. Kaylan Lew PLT 268 103/ul Normal 150-450 [facility] Comment on above: Performed By: #### C BC #### [facility] [address] [place] [address] Dr. Kaylan Lew RBC 4.72 106/ul Normal 4.70-6.10 [facility] Comment on above: Performed By: #### C BC #### [facility] [address] [place] [address] Dr. Kaylan Lew WBC 7.1 103/ul Normal 4.0-11.0 [facility] Comment on above: Performed By: #### C BC #### [facility] [address] [place] [address] Dr. Kaylan Lew BASO # 0.1 103/ul Normal 0.0-0.1 [facility] Comment on above: Performed By: #### C VDTBH #### [facility] [address] [place] [address] Dr. Kaylan Lew Basophils/100 WBC (Bld) 0.8 % Normal 0.2-2.0 [facility] Comment on above: Performed By: #### C VDTBH #### [facility] [address] [place] [address] Dr. Kaylan Lew EO # 0.1 103/ul Normal 0.0-0.7 [facility] Comment on above: Performed By: #### C VDTBH #### [facility] [address] [place] [address] Dr. Kaylan Lew Eosinophils/100 WBC (Bld) 1.4 % Normal 0.9-7.0 [facility] Comment on above: Performed By: #### C VDTBH #### [facility] [address] [place] [address] Dr. Kaylan Lew Erythrocyte distribution width (RBC) [Ratio] 14.0 % Normal 11.0-15.0 [facility] Comment on above: Performed By: #### C VDTBH #### [facility] [address] [place] [address] Dr. Kaylan Lew Hematocrit (Bld) [Volume fraction] 43.8 % Normal 42.0-54.0 [facility] Comment on above: Performed By: #### C VDTBH #### [facility] [address] [place] [address] Dr. Kaylan Lew Hemoglobin (Bld) [Mass/Vol] 15.4 g/dL Normal 14.0-18.0 [facility] Comment on above: Performed By: #### C VDTBH #### [facility] [address] [place] [address] Dr. Kaylan Lew IG # 0.02 10e3/ul Normal 0.00-0.03 [facility] Comment on above: Performed By: #### C VDTBH #### [facility] [address] [place] [address] Dr. Kaylan Lew IG % 0.3 % Normal 0.0-0.5 [facility] Comment on above: Performed By: #### C VDTBH #### [facility] [address] [place] [address] Dr. Kaylan Lew LYMPH # 2.0 103/ul Normal 1.2-3.8 [facility] Comment on above: Performed By: #### C VDTBH #### [facility] [address] [place] [address] Dr. Kaylan Lew Lymphocytes/100 WBC (Bld) 28.6 % Normal 20.5-60.0 [facility] Comment on above: Performed By: #### C VDTBH #### [facility] [address] [place] [address] Dr. Kaylan Lew MANUAL DIFF REQ NO Normal [facility] Comment on above: Performed By: #### C VDTBH #### [facility] [address] [place] [address] Dr. Kaylan Lew MCH (RBC) [Entitic mass] 33.4 pg Normal 25.9-34.0 [facility] Comment on above: Performed By: #### C VDTBH #### [facility] [address] [place] [address] Dr. Kaylan Lew MCHC (RBC) [Mass/Vol] 35.2 g/dL Normal 29.9-35.2 [facility] Comment on above: Performed By: #### C VDTBH #### [facility] [address] [place] [address] Dr. Kaylan Lew MCV (RBC) [Entitic vol] 95.0 fL Critically high 80.0-94.0 [facility] Comment on above: Performed By: #### C VDTBH #### [facility] [address] [place] [address] Dr. Kaylan Lew MONO # 0.6 103/ul Normal 0.3-0.8 [facility] Comment on above: Performed By: #### C VDTBH #### [facility] [address] [place] [address] Dr. Kaylan Lew Monocytes/100 WBC (Bld) 8.0 % Normal 1.7-12.0 [facility] Comment on above: Performed By: #### C VDTBH #### [facility] [address] [place] [address] Dr. Kaylan Lew NEUT # 4.3 103/ul Normal 1.4-6.5 [facility] Comment on above: Performed By: #### C VDTBH #### [facility] [address] [place] [address] Dr. Kaylan Lew Neutrophils/100 WBC (Bld) 60.9 % Normal 43.0-75.0 [facility] Comment on above: Performed By: #### C VDTB #### [facility] [address] [place] [address] Dr. Kaylan Lew Platelet mean volume (Bld) [Entitic vol] 8.5 fL Critically low 9.5-13.5 [facility] Comment on above: Performed By: #### C VDTBH #### [facility] [address] [place] [address] Dr. Kaylan Lew PLT 251 103/ul Normal 150-450 [facility] Comment on above: Performed By: #### C VDTBH #### [facility] [address] [place] [address] Dr. Kaylan Lew RBC 4.61 106/ul Critically low 4.70-6.10 [facility] Comment on above: Performed By: #### C VDTBH #### [facility] [address] [place] [address] Dr. Kaylan Lew WBC 7.1 103/ul Normal 4.0-11.0 [facility] Comment on above: Performed By: #### C VDTB #### [facility] [address] [place] [address] Dr. Kaylan Lew Covid-19 PCR ([facility])on 04-28 SARS-CoV-2 (COVID-19) RNA WHIT+probe Ql (Unsp spec) Not detected Normal NOT DETECTED [facility] Comment on above: Result Comment: When diagnostic testing is negative, the possibility of a false negative should be considered in the context of a patient's recent exposures and the presence of clinical signs and symptoms consistent with SARS-CoV-2. This test is not yet approved or cleared by the [place] FDA. When there are no FDA-approved or cleared tests available, and other criteria are met, FDA can make tests available under an emergency access mechanism called an Emergency Use Authorization (EUA). The EUA for this test is supported by the Supervisor Sanding of Health and Human Service's declaration that circumstances exist to justify the emergency use of in vitro diagnostics for the detection and/or diagnosis of the virus that causes COVID-19. This EUA will remain in effect for the duration of the COVID-19 declaration justifying emergency of IVDs, unless it is terminated or revoked by the FDA (after which the test may no longer be used). Performed By: #### C MP #### [facility] [address] [place] [address] Dr. Kaylan Lew DIRECT LDLon 05-11-2022 Cholesterol in LDL [Mass/Vol] 65 mg/dL Normal [facility] Comment on above: Performed By: #### C MP #### [facility] [address] [place] [address] [id number] [address] Kaylan Lew DLDL NORMAL SEE BELOW Normal [facility] Comment on above: Result Comment: <100 mg/dl OPTIMAL 100 - 129 mg/dl NEAR OR ABOVE OPTIMAL 130 - 159 mg/dl BORDERLINE HIGH 160 - 189 mg/dl HIGH >190 mg/dl VERY HIGH Performed By: #### C MP #### [facility] [address] [place] [address] Dr. Kaylan Lew IRON AND TIBCon 05-11-2022 % SATURATION 40.6 % Normal [facility] Comment on above: Performed By: #### C VDTBH #### [facility] [address] [place] [address] Dr. Kaylan Lew Iron [Mass/Vol] 104.0 ug/dL Normal 65.0-175.0 [facility] Comment on above: Performed By: #### C VDTBH #### [facility] [address] [place] [address] Dr. Kaylan Lew TIBC DIRECT 256.0 ug/dL Normal 250.0-450.0 [facility] Comment on above: Performed By: #### C VDTBH #### [facility] [address] [place] [address] Dr. Kaylan Lew MAGNESIUMon 05-11-2022 Magnesium [Mass/Vol] 2.0 mg/dL Normal 1.8-2.4 [facility] Comment on above: Performed By: #### M G #### [facility] [address] [place] [address] Dr. Kaylan Lew PROF 14(COMP METB)on 022 Albumin [Mass/Vol] 4.0 g/dL Normal 3.4-5.0 [facility] Comment on above: Performed By: #### C VDTBH #### [facility] [address] [place] [address] Dr. Kaylan Lew Albumin/Globulin [Mass ratio] 1.0 {ratio} Normal [facility] Comment on above: Performed By: #### C VDTBH #### [facility] [address] [place] [address] Dr. Kaylan Lew ALP [Catalytic activity/Vol] 117 U/L Critically high 46-116 [facility] Comment on above: Performed By: #### C VDTBH #### [facility] [address] [place] [address] Dr. Kaylan Lew ALT [Catalytic activity/Vol] 104 U/L Critically high 16-63 [facility] Comment on above: Performed By: #### C VDTBH #### [facility] [address] [address] [address] Kaylan Lew Anion gap [Moles/Vol] 12.3 mmol/L Normal [facility] Comment on above: Performed By: #### C VDTBH #### [facility] [address] [address] [address] Kaylan Lew AST [Catalytic activity/Vol] 120 U/L Critically high 15-37 [facility] Comment on above: Performed By: #### C VDTBH #### [facility] [address] [address] [address] Kaylan Lew Bilirubin [Mass/Vol] 0.6 mg/dL Normal 0.2-1.0 [facility] Comment on above: Performed By: #### C VDTBH #### [facility] [address] [place] [address] Dr. Kaylan Lew Calcium [Mass/Vol] 9.5 mg/dL Normal 8.5-10.1 [facility] Comment on above: Performed By: #### C VDTBH #### [facility] [address] [address] [address] Kaylan Lew Chloride [Moles/Vol] 95 mmol/L Critically low 98-107 [facility] Comment on above: Performed By: #### C VDTBH #### [facility] [address] [place] [address] Dr. Kaylan Lew CO2 [Moles/Vol] 28.1 mmol/L Normal 21.0-32.0 [facility] Comment on above: Performed By: #### C VDTBH #### [facility] [address] [place] [address] Dr. Kaylan Lew Creatinine [Mass/Vol] 0.62 mg/dL Critically low 0.70-1.30 [facility] Comment on above: Performed By: #### C VDTBH #### [facility] [address] [place] [address] Dr. Kaylan Lew EGFR-AF EGYPTIAN >60 Normal >=60 [facility] Comment on above: Performed By: #### C VDTBH #### [facility] [address] [address] [address] Kaylan Lew EGFR-NON AF EGYPTIAN >60 Normal >=60 [facility] Comment on above: Performed By: #### C VDTBH #### [facility] [address] [address] [address] Kaylan Lew Globulin (S) [Mass/Vol] 4.0 g/dL Normal [facility] Comment on above: Performed By: #### C VDTBH #### [facility] [address] [address] [address] Kaylan Lew Glucose [Mass/Vol] 80 mg/dL Normal 74-106 [facility] Comment on above: Performed By: #### C VDTBH #### [facility] [address] [place] [address] Dr. Kaylan Lew Potassium [Moles/Vol] 4.4 mmol/L Normal 3.5-5.1 [facility] Comment on above: Performed By: #### C VDTBH #### [facility] [address] [place] [address] Dr. Kaylan Lew Protein [Mass/Vol] 8.0 g/dL Normal 6.4-8.2 [facility] Comment on above: Performed By: #### C VDTBH #### [facility] [address] [place] [address] Dr. Kaylan Lew Sodium [Moles/Vol] 131 mmol/L Critically low 136-145 [facility] Comment on above: Performed By: #### C VDTBH #### [facility] [address] [place] [address] Dr. Kaylan Lew Urea nitrogen [Mass/Vol] 5.0 mg/dL Critically low 7.0-18.0 [facility] Comment on above: Performed By: #### C VDTBH #### [facility] [address] [place] [address] Dr. Kaylan Lew Urea nitrogen/Creatinine [Mass ratio] 8.1 mg/mg Normal [facility] Comment on above: Performed By: #### C VDTBH #### [facility] [address] [place] [address] Dr. Kaylan Lew Albumin [Mass/Vol] 3.9 g/dL Normal 3.4-5.0 [facility] Comment on above: Performed By: #### C MP #### [facility] [address] [place] [address] Dr. Kaylan Lew Albumin/Globulin [Mass ratio] 1.0 {ratio} Normal [facility] Comment on above: Performed By: #### C MP #### [facility] [address] [address] [address] Kaylan Lew ALP [Catalytic activity/Vol] 114 U/L Normal 46-116 [facility] Comment on above: Performed By: #### C MP #### [facility] [address] [place] [address] Dr. Kaylan Lew ALT [Catalytic activity/Vol] 99 U/L Critically high 16-63 [facility] Comment on above: Performed By: #### C MP #### [facility] [address] [address] [address] Kaylan Lew Anion gap [Moles/Vol] 14.1 mmol/L Normal [facility] Comment on above: Performed By: #### C MP #### [facility] [address] [place] [address] Dr. Kaylan Lew AST [Catalytic activity/Vol] 115 U/L Critically high 15-37 [facility] Comment on above: Performed By: #### C MP #### [facility] [address] [address] [address] Kaylan Lew Bilirubin [Mass/Vol] 0.6 mg/dL Normal 0.2-1.0 [facility] Comment on above: Performed By: #### C MP #### [facility] [address] [place] [address] Dr. Kaylan Lew Calcium [Mass/Vol] 9.5 mg/dL Normal 8.5-10.1 [facility] Comment on above: Performed By: #### C MP #### [facility] [address] [place] [address] Dr. Kaylan Lew Chloride [Moles/Vol] 94 mmol/L Critically low 98-107 [facility] Comment on above: Performed By: #### C MP #### [facility] [address] [address] [address] Kaylan Lew CO2 [Moles/Vol] 26.0 mmol/L Normal 21.0-32.0 [facility] Comment on above: Performed By: #### C MP #### [facility] [address] [address] [address] Kaylan Lew Creatinine [Mass/Vol] 0.73 mg/dL Normal 0.70-1.30 [facility] Comment on above: Performed By: #### C MP #### [facility] [address] [place] [address] Dr. Kaylan Lew EGFR-AF EGYPTIAN >60 Normal >=60 [facility] Comment on above: Performed By: #### C MP ####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
== END 2024-04-12 09:52 | disposition home or self-care (01) ==
LOC: CARD 09:51
PROVIDERS: PCP Internal Medicine; Visit Provider Internal Medicine Cardiovascular Disease
DX: R94.31 Abnormal electrocardiogram [ECG] [EKG] (principal)
CPT/HCPCS: 93306

== ENCOUNTER 2025-01-01 10:12 | Outpatient (OUT) | payer MEDICARE, MEDICAID, SELFPAY ==
--- OUTSIDE RECORDS SUMMARY | 2024-04-04 14:40 | XMS_ITS ---
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 Name Role Phone SHAKA SINGH Attending Unavailable PROBLEMS No Problem Records Found PROCEDURES No Procedure Records Found RESULTS OFFICE VISIT Observed: 04/04/2024 2:45 PM Status: COMPLETED Source: [facility] [id number] Colten Vang 10/1959 M Date Provider Department Center 04/04/2024 [facility]SHAKA SINGH [facility] No family history on file Level of Service:64400 NC OFFICE/OUTPATIENT ESTABLISHED LOW MDM 20 MIN PROGRESS Observed: 04/04/2024 2:45 PM Status: COMPLETED Source: [facility] Electrophysiology Consult Note Reason for visit: Afib 04/04/24 Patient was last seen a year and a half ago. Patient has continued to abuse alcohol and tobacco regularly. He denies any chest pain, palpitations. Does admit to some increased SOB with exertion, when doing yard work. He also complains of swelling in his lower extremities. who accompanies him states he abused ~20-30 cans of beer/day ad occ spirits too along with THC. 09/16/23 Patient attempted a cardioversion but was unsuccessful. he continues to abuse alcohol regularly and is unable to quit. he is in atrial fibrillation today by pulse check Prior HPI: Colten Vang is a 63 y.o. year old with past medical history of alcoholism, tobacco abuse Was admitted to [facility] with A. fib with RVR. this was the first documented episode of that. he was placed on Cardizem for rate control and subsequently placed on Xarelto. with adequate rate control he was subsequently discharged. he was noted to have abnormal LFT at that time, likely from alcohol abuse. since then he still continues to abuse alcohol and tobacco. EKG 06/23/2022 shows Afib with varying rate echocardiogram on 05/12/2022 EF of 42% with normal left atrial size and mild right atrial enlargement with RVSP of 42 mmHg with mild TR and MR. PMH: No past medical history on file. PSH: No past surgical history on file. SH: Social Determinants of Health Tobacco Use: High Risk (09/15/2022) Patient History Smoking Tobacco Use: Every Day Smokeless Tobacco Use: Never Passive Exposure: Current Alcohol Use: Not on file Financial Resource Strain: Not on file Food Insecurity: Not on file Transportation Needs: Not on file Physical Activity: Not on file Stress: Not on file Social Connections: Not on file Intimate Partner Violence: Unknown (08/19/2023) [place] Safety & Environment Fear of Current or Ex-Partner: Not on file Emotionally Abused: Not on file Physically Abused: Not on file Sexually Abused: Not on file Physically or Sexually Abused: Not on file Depression: Not on file Housing Stability: Not on file Utilities: Not on file Allergies: Allergies Allergen Reactions Gabapentin Nausea And Vomiting Weight: No results found for: PTWEIGHT Meds: Current Outpatient Medications on File Prior to Visit Medication Sig Dispense Refill Combivent Respimat 20-100 mcg/actuation inhaler INHALE 1 PUFF FOUR TIMES A DAY DIRECTED cyanocobalamin (Vitamin B-12) 1,000 mcg tablet Take 1,000 mcg by mouth in the morning. lisinopril 20 mg tablet Take 20 mg by mouth in the morning. metoprolol succinate XL (Toprol-XL) 100 mg 24 hr tablet Take 1 tablet (100 mg) by mouth in the morning. 90 tablet 3 Therapeutic-M 9 mg iron-400 mcg tablet Take 1 tablet by mouth in the morning. Ventolin HFA 90 mcg/actuation inhaler 2 (TWO) PUFF EVERY 4 HOURS NEEDED FOR COUGH, SOB amiodarone (Pacerone) 200 mg tablet Take 1 tablet (200 mg) by mouth in the morning. 30 tablet 5 amLODIPine (Norvasc) 2.5 mg tablet Take 2.5 mg by mouth in the morning. cyclobenzaprine (Flexeril) 10 mg tablet Take 10 mg by mouth in the morning and at bedtime. IBU 800 mg tablet Take 800 mg by mouth in the morning, afternoon, and at bedtime. Xarelto 20 mg tablet Take 1 tablet (20 mg) by mouth in the morning. (Patient not taking: Reported on 04/04/2024) 90 tablet 3 No current facility-administered medications on file prior to visit. ROS: Review of Systems Cardiovascular: Positive for leg swelling (right ankle swelling). Respiratory: Positive for shortness of breath. Physical Exam: Constitutional General Appearance: well-nourished, well-developed, appears stated age Level of Distress: comfortable Psychiatric Mental Status: alert, normal affect Orientation: oriented to time, place, and person Insight: good judgement Eyes Lids and Conjunctivae: non-injected, no xanthelasma ENMT Ears: no lesions on external ear Nose: no lesions on external nose Oropharynx: no cyanosis, no pallor Neck Neck: supple, trachea midline Carotid Arteries: bilateral normal upstroke, no bruits Jugular Veins: normal jugular venous pressure Thyroid: not enlarged Lungs Respiratory Effort: unlabored Chest Exam: normal curvature, no thoracic deformity Auscultation: clear, no wheezing, no rales, no rhonchi Cardiovascular Rate And Rhythm: irregular Heart Sounds: normal S1, normal s2, no gallop Systolic Murmur: not heard Diastolic Murmur: not heard Extremities: no cyanosis, no edema, no peripheral signs of emboli Peripheral Pulses Radial Pulse: normal Abdomen Inspection and Palpation: soft, non distended, no bruit, non tender Musculoskeletal Inspection: Joint swelling in b/l hands and wrists. Neurologic Gait: normal gait Skin Inspection and Palpation: warm and dry Nails: no clubbing Labs: 03/06/24: Liver/TSH: AST 37, ALT 30, Alk Phos 106, TSH 0.976 11/26/2023 CBC: WBC 7.6, RBC 4.31, Hgb 14.3. hematocrit 42.0, platelet 264, Chem: Na 135, K+ 4.1, Chloride 96, BUN 2, Creatinine 0.64, Glucose 93, Calcium 9.1 EK08/05/22 Shows atrial fibrillation. Echo: 05/12/2022 Diagnostic Imaging: No images are attached to the encounter. Assessment and Plan: - Afib with RVR: He is s/p cardioversion with amiodarone which was unsuccessful on 08/05/2022. Stop amiodarone and Ct xarelto. 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 Ct GDMT -Will repeat Echo. If ejection fraction is suspicious for worsening cardiomyopathy, will consider expediting ablation procedure. Alternatively, if stable, will continue to wait for alcohol cessation prior to ablation procedure. Will follow up in June with me to discuss about ablation if he can reduce alcohol intake. . Shaka Singh MD Cardiac Electrophysiology [facility] ORDERS ONLY Observed: 02/25/2024 12:00 AM Status: COMPLETED Source: [facility] [id number] Colten Vang M Date Provider Department Center 02/25/2024 [facility]IB[facility] No family history on file ALLERGIES DATE TYPE / CODE NAME / CODE REACTION SEVERITY SOURCE 12/31/2015 DRUG INGREDI/[id number] 03(SNOMED CT) GABAPENTIN (Inactive) Nausea And Vomiting Low [facility] ENCOUNTERS ADMIT/DISCHARGE ACCOUNT NUMBER ADMITTING ENCOUNTER CLASS LOCATION SOURCE 04/04/2024/ 4 [id number] [facility] ENCOUNTER GUARANTOR PAYER SUBSCRIBER SOURCE 04/04/2024 Primary Insurance:MEDICAID [facility] Number: [id number] Date:2023-04-28 COLTEN VANGDOB: [id number] [facility] [address] [place] [address] [facility]
--- OUTSIDE RECORDS SUMMARY | 2024-05-15 12:31 | XMS_ITS | Continuity of Care Document ---
Author Organization [facility] Address [address] [place] [address] Phone Care Team Providers Care Analytical Technician Name Role Phone Ya Josr Unavailable Unavailable Procedures Procedure Date Acute Detox Gut Puller DRUG TEST PRSMV DIR OPT OBS Acute Detox Gut Puller Acute Detox Gut Puller Acute Detox Gut Puller ROUTINE VENIPUNCTURE DRUG TEST PRSMV DIR OPT OBS Acute Detox Gut Puller Advance Directives Directive Yes / No Effective Date File Name No Information Encounters Encounter Description Practice Location Reason(s) For Visit Diagnoses Date Provider Providers Copied on Encounter [facility], [address] [place] [address], [id number], tel:[phone] [facility] Detox No Information Ya Ovalles. [address] [place], [address], [place]. tel:[phone] [facility], [address] [place] [address], [id number], [place] tel:[phone] [facility] No Information Sophy Fan. [address] [place] [address], [id number], [place]. tel:[phone] [facility], [address] [place] [address], [id number], [place] tel:[phone] [facility] Detox No Information Sophy Fan. [address] [place] [address], [id number], [place]. tel:[phone] [facility], [address] [place], [place], [id number], [place] tel:[phone] [facility] No Information Sophy Fan. [address], [place], [id number], [place]. tel:[phone] [facility], [address], [place], [id number], [place] tel:[phone] [facility] No Information Sophy Fan. [address], [place], [id number], [place]. tel:[phone] Family History Family Member Type Diagnosis Age At Onset No Information Payers Payer name Insurance type Covered green party ID Nicolasa green(s) Medicaid Primary [id number] Social History Type Description Quantity Date Captured Comments Sex Male Smoking Status No Information Sexual Orientation Straight or heterosexual Apr Gender Identity Male Chief Complaint And Reason For Visit No Information Reason For Referral Reason For Referral No Information History Of Present Illness Encounter Date Complaint History Of Prese nt Illness No Information Functional Status Date Functional Assessmen t No Information Instructions Date Instruction Additional Infor mation No Information Assessments Type Assessment Date No Information Patient Care Teams Name Effective Dates (start - stop) Status Members No Information
--- OUTSIDE RECORDS SUMMARY | 2025-01-01 10:15 | XMS_ITS | Clinical Summary ---
Author Organization [facility] Address [address] [place] [address] Phone Care Team Providers Care Digital Production Operator Name Role Phone Unavailable Primary Care Provider Unavailabl e Social History Tobacco Use Types Packs/Day Years Used Date Smoking Tobacco: Never Assessed Sex and Gender Information Value Date Recorded Sex Assigned at Not on file Legal Sex Male 9:25 AM EST Gender Identity Not on file Sexual Orientation Not on file Plan of Treatment Not on file
--- OUTSIDE RECORDS SUMMARY | 2025-01-01 10:15 | XMS_ITS | Clinical Summary ---
Author Organization [facility] Address [address] [place] [address] Care Team Providers Care Business Continuity Planning Director Name Role Phone Unavailable Primary Care Provider Unavailabl e Allergies Active Allergy Reactions Criticality Noted Date Comments Gabapentin Nausea And Vomiting Low 12/31/2015 Medications meloxicam (MOBIC) 15 MG tablet Take 15 mg by mouth daily Active traMADol (ULTRAM) 50 MG tablet Take 50 mg by mouth every 6 hours as needed for Pain Active HYDROcodone-acet aminophen (NORCO) 7.5-325 MG per tablet Take 1 tablet by mouth every 6 hours as needed for Pain Active cyclobenzaprine (FLEXERIL) 10 MG tablet Take 10 mg by mouth 3 times daily as needed for Muscle spasms Active lisinopril (PRINIVIL;ZESTRI L) 5 MG tablet Take 5 mg by mouth daily Active meloxicam (MOBIC) 15 MG tablet Take 1 tablet by mouth daily 30 tablet 3 08/27/2015 Active Active Problems Problem Noted Date Diagnosed Date Lumbar degenerative disc disease 02/20/2016 Foraminal stenosis of lumbar region 02/20/2016 Cervical spinal stenosis 04/27/2015 Cervical spondylosis with myelopathy 02/25/2015 Carpal tunnel syndrome of right wrist 02/25/2015 Family History Medical History Relation Name Comments Cancer Father Coronary Art Dis Father Heart Disease Father Arthritis Mother Coronary Art Dis Mother Heart Disease Mother Relation Name Status Comments Father Mother Alive Social History Tobacco Use Types Packs/Day Years Used Date Smoking Tobacco: Every Day Cigarettes 1 1 Smokeless Tobacco: Former Comments:Have smoked since a ge 13 Alcohol Use Standard Drinks/Week Comments Yes 30 (1 standard drink = 0.6 oz pure alcohol) Current everyday beer drinking 10 to 12 Sex and Gender Information Value Date Recorded Sex Assigned at Not on file Legal Sex Male 11:19 PM EST Gender Identity Not on file Sexual Orientation Not on file 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
--- OUTSIDE RECORDS SUMMARY | 2025-01-01 10:15 | XMS_ITS | Clinical Summary ---
Author Organization [facility] Address [address] [place] [address] Care Team Providers Care Geological Sample Tester Name Role Phone Unavailable Primary Care Provider Unavailabl e Social History Tobacco Use Types Packs/Day Years Used Date Smoking Tobacco: Never Assessed Sex and Gender Information Value Date Recorded Sex Assigned at Not on file Legal Sex Male 7:26 PM EDT Gender Identity Not on file Sexual Orientation Not on file Plan of Treatment Not on file
--- NOTE | 2025-01-01 10:46 | CT_ITS ---
The [address] [address] Patient Name: STACI REGALADO MRN: [id number] date: 1960 Sex: M Assigned Patient Location: CT Current Patient Location: CT Accession/Order Number: [id number] Exam Date: 01/01/2025 11:21 Report Date: 01/01/2025 11:42 At the request of: CHELLE GARNER DO Procedure: CT lung screening low-dose LOW-DOSE SCREENING CHEST CT WITHOUT CONTRAST COMPARISON: None CLINICAL DATA: Current smoker for approximately 50 years. Spiral axial unenhanced low-dose images were obtained through the chest. Images were reviewed using both narrow and wide window settings. This CT exam was performed using one or more following dose reduction techniques: Automated exposure control, adjustment of the mA and/or kV according to patient size, or use of iterative reconstruction technique. The heart is within normal limits for size. No pericardial effusion is present. Coronary artery disease is seen. The ascending aorta is mildly ectatic. Mild atherosclerotic plaque at the aortic arch, descending aorta and proximal great vessels. There are small nonpathologic mediastinal lymph nodes. A tiny hiatal hernia is seen. There is slight dextroscoliotic curvature as well as degenerative changes at the spine. There is obstructive lung disease with airspace lucencies and small subpleural blebs. Mild apical scarring is seen. There is also minimal scarring or atelectasis at the lung bases. There are some subtle tiny somewhat nodular groundglass opacities at the right upper lobe. There is also a solid, somewhat nodular density at the right middle lobe measuring 6 to 7 mm in size. No focal parenchymal consolidation, pleural effusion or pneumothorax is identified. Limited cuts through the upper abdomen show subtle left renal hypodensity that may be a cyst. CT/CT lung screening low-dose IMPRESSION: OBSTRUCTIVE LUNG DISEASE WITH ATELECTASIS OR SCARRING. RIGHT MIDDLE LOBE NODULAR ASYMMETRY JUST OVER 6 MM IN SIZE. Lung RADS category 3 - probably benign Six-month low-dose CT follow-up suggested. Impression dictated by: Nikki Godfrey M.D. 01/01/2025 11:42 AM Dictation Location: [place] [address] Electronically authenticated by: [id number] Y Date: 01/01/2025 11:42
[2025-01-01 11:08] LABS: Hematocrit 42.6 % (42.0-54.0); Hemoglobin 15.0 g/dL (14.0-18.0); Immature Granulocytes Abs Auto 0.02 10^3/uL (0.00-0.03); Immature Granulocytes Pct Auto 0.3 % (0.0-0.5); Lymphocytes Absolute Auto 1.9 10^3/uL (1.2-3.8); Mean Corpuscular HGB Conc 35.2 g/dL (29.9-35.2); Mean Corpuscular Hemoglobin 34.2 pg (25.9-34.0); Mean Corpuscular Volume 97.0 fL (80.0-94.0); Platelet Count 215 10^3/uL (150-450); Red Blood Count 4.39 10^6/uL (4.70-6.10); White Blood Count 6.4 10^3/uL (4.0-11.0)
[2025-01-01 11:28] LABS: Alanine Aminotransferase 63 U/L (16-63); Albumin Globulin Ratio 0.9; Albumin Level 3.7 g/dL (3.4-5.0); Alkaline Phosphatase 132 U/L (46-116); Anion Gap 14.1; Aspartate Amino Transferase 74 U/L (15-37); Blood Urea Nitrogen 6.0 mg/dL (7.0-18.0); Calcium 9.3 mg/dL (8.5-10.1); Carbon Dioxide 29.6 mmol/L (21.0-32.0); Chloride 96 mmol/L (98-107); Cholesterol 155 mg/dL (<=200); Estimated GFR (African America >60 (>=60 mL/min/1.73m^2); Estimated GFR (Non-African Ame >60 (>=60 mL/min/1.73m^2); Globulin 3.9 g/dL; Glucose 90 mg/dL (74-106); HDL Cholesterol 78 mg/dL (40-60); Potassium 4.7 mmol/L (3.5-5.1); Sodium 135 mmol/L (136-145); Total Protein 7.6 g/dL (6.4-8.2); Triglycerides 52 mg/dL (<=150); VLDL CHOLESTEROL 10.4 mg/dL
== END 2025-01-01 10:13 | disposition home or self-care (01) ==
LOC: CT 10:13
PROVIDERS: PCP Internal Medicine; Visit Provider Internal Medicine
DX: E78.00 Pure hypercholesterolemia, unspecified (principal); F17.210 Nicotine dependence, cigarettes, uncomplicated; I10 Essential (primary) hypertension; I48.19 Other persistent atrial fibrillation; Z12.5 Encounter for screening for malignant neoplasm of prostate; J44.9 Chronic obstructive pulmonary disease, unspecified; R91.1 Solitary pulmonary nodule
CPT/HCPCS: 36415; 71271; 80053; 80061; 85025; G0103

== ENCOUNTER 2025-06-12 15:03 | Outpatient (OUT) | payer MEDICARE, MEDICAID, SELFPAY ==
--- OUTSIDE RECORDS SUMMARY | 2025-06-12 15:07 | XMS_ITS | Clinical Summary ---
Author Organization [facility] Address [address] [place] [address] Care Team Providers Care Shader And Toner Name Role Phone Unavailable Primary Care Provider Unavailabl e Social History Tobacco UseTypesPacks/DayYears UsedDateSmoking Tobacco: Never AssessedSex and Gender InformationValueDate RecordedSex Assigned at BirthNot on fileLegal Sex Male09/09/2022 7:26 PM EDTGender IdentityNot on fileSexual OrientationNot on file Plan of Treatment Not on file
--- OUTSIDE RECORDS SUMMARY | 2025-06-12 15:07 | XMS_ITS | Clinical Summary ---
Author Organization [facility] Address [address], [address] [place] [address] Care Team Providers Care Low Voltage Electrician Name Role Phone Unavailable Primary Care Provider Unavailabl e Allergies Active AllergyReactionsCriticalityNoted DateCommentsGabapentinNausea And HolqwshgOlo05/05/2016 Medications MedicationSigDispense QuantityRefillsLast FilledStart DateEnd DateStatus meloxicam (MOBIC) 15 MG tablet Take 15 mg by mouth dailyActive traMADol (ULTRAM) 50 MG tablet Take 50 mg by mouth every 6 hours as needed for PainActive HYDROcodone-acetaminophen (NORCO) 7.5-325 MG per tablet Take 1 tablet by mouth every 6 hours as needed for PainActive cyclobenzaprine (FLEXERIL) 10 MG tablet Take 10 mg by mouth 3 times daily as needed for Muscle spasmsActive lisinopril (PRINIVIL;ZESTRIL) 5 MG tablet Take 5 mg by mouth dailyActive meloxicam (MOBIC) 15 MG tablet Take 1 tablet by mouth daily 30 tablet Active Active Problems ProblemNoted DateDiagnosed DateLumbar degenerative disc jvnolmo2702/20/2016 Foraminal stenosis of lumbar aplisp4802/20/2016Cervical spinal vwjhtgaz91/31/2015 Cervical spondylosis with dmyxtkezbg55/31/2015Carpal tunnel syndrome of right wrist02/25/2015 Family History Medical HistoryRelationNameCommentsCancerFatherCoronary Art DisFatherHeart DiseaseFatherArthritisMotherCoronary Art DisMotherHeart DiseaseMotherRelation NameStatusCommentsFatherDeceasedMotherAlive Social History Tobacco UseTypesPacks/DayYears UsedDateSmoking Tobacco: Every WdlOdfsjswaio45 Smokeless Tobacco: Former Comments:Have smoked since a ge 13 Alcohol UseStandard Drinks/KkqjKwkayjsaFlo13 (1 standard drink = 0.6 oz pure alcohol)Current everyday beer drinking 10 to 12Sex and Gender InformationValue Date RecordedSex Assigned at BirthNot on fileLegal JnvZexv0008/08/2012 11:19 PM ESTGender IdentityNot on fileSexual OrientationNot on fileOccupationIndustryJob Start DateJob End DateconstructionNot on fileNot on fileNot on fileSTEEL MILLNot on fileNot on fileNot on file Last Filed Vital Signs Vital SignReadingTime TakenCommentsBlood Orvdejws423/8508 1:04 PM EDT Czpju606602/20/2016 1:04 PM ZOUZnpnfjlgvae78.9 ??C (98.4 ??F)05/30/2015 4:36 PM ESTRespiratory Rate--Oxygen Saturation--Inhaled Oxygen Concentration--Tetglw20.2 kg (190 lb)02/20/2016 1:04 PM XCZGtxsbx518.3 cm (5' 9 )02/20/2016 1:04 PM EDT Body Mass Index28.0602/20/2016 1:04 PM EDT Plan of Treatment Not on file Insurance
--- OUTSIDE RECORDS SUMMARY | 2025-06-12 15:07 | XMS_ITS | Clinical Summary ---
Author Organization [facility] Address [address] [place] [address] Care Team Providers Care Wiener Packer Name Role Phone Toribio Pink DO Primary Care Provider [phone] Allergies Active AllergyReactionsCriticalityNoted DateCommentsGabapentinNausea And PcrnyzanUfm33/05/2016 Medications MedicationSigDispense QuantityRefillsLast FilledStart DateEnd DateStatus lisinopril 20 mg tablet Take 20 mg by mouth in the morning.05/29/2022ctive Therapeutic-M 9 mg iron-400 mcg tablet Take 1 tablet by mouth in the morning.05/29/2022ctive Combivent Respimat 20-100 mcg/actuation inhaler INHALE 1 PUFF FOUR TIMES A DAY ZMFVXNRP84/05/2022ctive IBU 800 mg tablet Take 800 mg by mouth in the morning, afternoon, and at bedtime.05/29/2022ctive cyclobenzaprine (Flexeril) 10 mg tablet Take 10 mg by mouth in the morning and at bedtime.05/01/2022ctive cyanocobalamin (Vitamin B-12) 1,000 mcg tablet Take 1,000 mcg by mouth in the morning.05/29/2022ctive amLODIPine (Norvasc) 2.5 mg tablet Take 2.5 mg by mouth in the morning.05/29/2022ctive Ventolin HFA 90 mcg/actuation inhaler 2 (TWO) PUFF EVERY 4 HOURS NEEDED FOR COUGH, SOB05/29/2022ctive Xarelto 20 mg tablet Indications:Paroxysmal atrial fibrillation (CMS/HCC)Take 1 tablet (20 mg) by mouth in the morning. 90 tablet ctive Additional Information Patient not taking.Reported on 04/04/2024 metoprolol succinate XL (Toprol-XL) 100 mg 24 hr tablet Indications:Paroxysmal atrial fibrillation (CMS/HCC)Take 1 tablet by mouth daily 90 tablet 5Active metoprolol succinate XL (Toprol-XL) 100 mg 24 hr tablet Indications:Paroxysmal atrial fibrillation (CMS/HCC)Take 1 tablet by mouth daily. Needs apt for further refills. 90 tablet Discontinued(Reorder) Active Problems ProblemNoted DateDiagnosed DateParoxysmal atrial eakylvwwvuoo37/29/2022 Overview (06/25/2022): Added automatically from request for surgery [id number] Encounters DateTypeDepartmentCare CmarKarutcpjubm33/01/2025Ref[facility] [address] [place] [address] Sangeetha Knowles MA Benign hypertensive heart disease without congestive heart failure (Primary Dx); Paroxysmal atrial fibrillation (CMS/HCC)03/26/2025[facility] [address] [place] [address] Shaka Singh MD Paroxysmal atrial fibrillation (CMS/HCC)from Last 3 Months Social History Tobacco UseTypesPacks/DayYears UsedDateSmoking Tobacco: Every DitIezhpokbsc145 Started: 1972Passive Smoke Exposure: CurrentSmokeless Tobacco: Never Tobacco Cessation:Ready to Q uit: Not Asked; Counseling Given: Not Answered Alcohol UseStandard Drinks/UuxyQcyfqttwWpp49 (1 standard drink = 0.6 oz pure alcohol)every day 12pkUT Safety & EnvironmentAnswerDate RecordedFear of Current or Ex-PartnerNot on file08/19/2023Emotionally AbusedNot on file08/19/2023 Physically AbusedNot on file08/19/2023Sexually AbusedNot on file08/19/2023 Physically or Sexually AbusedNot on file08/19/2023Sex and Gender Information ValueDate RecordedSex Assigned at PthtbCjhg68/15/2025 2:29 PM ESTLegal SexMale 05/13/2022 8:35 AM ESTGender BdrxkzhlLjsj57/15/2025 2:29 PM ESTSexual OrientationHeterosexual or Bcwiawtz46/15/2025 2:29 PM EST Last Filed Vital Signs Vital SignReadingTime TakenCommentsBlood Bgnvhwza800/6804/04/2024 3:06 PM EDT Esbtt053104/04/2024 3:06 PM EDTTemperature--Respiratory Grhq782908/05/2022 12:34 PM ESTOxygen Ovqgudlbds87%04/04/2024 3:06 PM EDTInhaled Oxygen Concentration-- Exepro71.5 kg (173 lb)04/04/2024 3:06 PM IJELsrgeu550.3 cm (5' 9 )04/04/2024 3:06 PM EDTBody Mass Index25.5504/04/2024 3:06 PM EDT Plan of Treatment DateTypeDepartmentCare Team (Latest Contact Info)Oeltvdoipey81/16/2025 [address] [facility] [address] [place] [address] Shaka Singh MD [address] [place] [address] Health MaintenanceDue DateLast DoneCommentsCT Xsaojvnsziyq1958Colonoscopy 1960Colorectal Cancer Ghyabrbnx1958FIT-DNA1958FIT1960 FOBT1960Medicare Annual Wellness (AWV)1960 3444Ykhdrucndczga1958 Depression Jvtibxgve03/05/1970Pneumococcal Vaccine: 50+ Years (1 of 2 - PCV) 1977Adult Ltppgxi7605/02/1980Zoster Vaccines (1 of 2)2008Fall Risk Wtccnsdia50/05/2023COVID-19 Vaccine ( season)51, 10/06/2020, 09/09/2020Influenza Vaccine (#1)510/HIB VaccinesAged OutNo longer eligible based on patient's age to complete this topicHPV Vaccines Aged OutNo longer eligible based on patient's age to complete this topicIPV VaccinesAged OutNo longer eligible based on patient's age to complete this topic Meningococcal B VaccineAged OutNo longer eligible based on patient's age to complete this topicMeningococcal VaccineAged OutNo longer eligible based on patient's age to complete this topicRotavirus VaccinesAged OutNo longer eligible based on patient's age to complete this topic Insurance [address] [place] [address] Care Teams Team MemberRelationshipSpecialtyStart DateEnd Date Toribio Pink DO [address] [place] [id number] PCP - General08/05/22
--- OUTSIDE RECORDS SUMMARY | 2025-06-12 15:07 | XMS_ITS | Clinical Summary ---
Author Organization [facility] Address [address] [place] [address] Phone Care Team Providers Care Digital Campaign Specialist Name Role Phone Unavailable Primary Care Provider Unavailabl e Social History Tobacco UseTypesPacks/DayYears UsedDateSmoking Tobacco: Never AssessedSex and Gender InformationValueDate RecordedSex Assigned at BirthNot on fileLegal Sex Male05/22/2022 9:25 AM ESTGender IdentityNot on fileSexual OrientationNot on file Plan of Treatment Not on file
--- NOTE | 2025-06-12 15:10 | CT_ITS ---
The [address] [address] Patient Name: STACI REGALADO MRN: [id number] date: 1960 Sex: M Assigned Patient Location: CT Current Patient Location: Accession/Order Number: [id number] Exam Date: 06/12/2025 15:35 Report Date: 06/13/2025 00:15 At the request of: CHELLE GARNER DO Procedure: CT chest wo con CT chest wo con 06/12/2025 3:41 PM SIGN AND SYMPTOMS: Follow-up lung nodule TECHNIQUE: Multidetector CT axial slices of the chest were obtained without IV contrast. Multiplanar reformats were performed and viewed on a separate workstation and reviewed to further define anatomy and possible pathology. CT was performed with one or more of the following dose reduction techniques: Automated exposure control, adjustment of the mA and/or kV according to patient size, or use of iterative reconstruction technique. COMPARISON: 01/01/2025. FINDINGS: Lower neck: Thyroid gland within normal limits, no supraclavicle adenopathy. Vessels: Atherosclerotic changes are noted in the thoracic aorta, origins of great vessels, and coronary arteries. Mediastinum and Tara: Within normal limits. Heart: Normal size. No pericardial effusion. Airways: Within normal limits Lungs: There is an unchanged 7 mm noncalcified nodule in the right middle lobe. Emphysematous changes are noted in the lung parenchyma. Pleura: Within normal limits. Chest Wall: Within normal limits. Upper Abdomen: There is a simple cyst in the left renal cortex requiring no further follow-up. There is a small hiatal hernia with a small amount of gastric fundus projecting in the lower mediastinum. Bones: Degenerative changes are noted in the thoracic spine. CT/CT chest wo con IMPRESSION: There is an unchanged 7 mm noncalcified nodule in the right middle lobe. Emphysematous changes are noted in the lung parenchyma. Impression dictated by: Rohit Roberson M.D. 06/13/2025 12:15 AM Dictation Location: [place] [address] Electronically authenticated by: [id number] Y Date: 06/13/2025 00:15
== END 2025-06-12 15:04 | disposition home or self-care (01) ==
LOC: CT 15:04
PROVIDERS: PCP Internal Medicine; Visit Provider Internal Medicine
DX: R91.1 Solitary pulmonary nodule (principal)
CPT/HCPCS: 71250